=== PATIENT | male | born 1970 ===

== ENCOUNTER 2023-10-06 07:24 | Inpatient (IN) | payer OTHER ==
[2023-10-06] VITALS (7 sets, daily range): BP systolic 67–93; BP diastolic 26–37; PULSE 48–112; RESP 18–24; TEMP 82; O2SAT 0–93
[~2023-10-06] VITALS: Ht 177.8 cm; Wt 68.2 kg
[2023-10-06] MEDS ORDERED: SODIUM CHLORIDE 0.9% 1,000 ML IV ONE (08:15)
[2023-10-06] MEDS ORDERED: THIAMINE 100 MG/ML 2 ML VIAL IVP ONE (08:15)
[2023-10-06] MEDS ORDERED: ETOMIDATE 2 MG/ML 10 ML VIAL IVP ONE (08:15)
[2023-10-06] MEDS ORDERED: SODIUM BICARBONATE 150 MEQ in DEXTROSE 5%-WATER 1,000 ML IV ONE (08:15)
[2023-10-06] MEDS ORDERED: SODIUM BICARBONATE [ADULT] 8.4% 50 MEQ/50 ML SYRINGE IVP ONE ×4 (08:15→13:57)
[2023-10-06] MEDS ORDERED: DOPamine 400MG/D5W[STANDARD] 250 ML IV PRN (08:15)
[2023-10-06] MEDS ORDERED: SUCCINYLCHOLINE CHLORIDE 20 MG/ML 10 ML VIAL IVP ONE (08:15)
[2023-10-06 08:19] LABS: TROPONIN I-HIGH SENSITIVITY 35 ng/L (<76)
[2023-10-06 08:20] LABS: ABG BASE EXCESS -29.4 mmol/L (-2.0-3.0); ABG CARBOXYHEMOGLOBIN 0.8 % (0.0-1.5); ABG METHEMOGLOBIN 1.7 % (0.0-1.5); ABG OXYGEN CONTENT 9.5 mL/dL (15.0-23.0); ABG OXYGEN SATURATION 98.5 % (95.0-98.0); ABG PCO2 36 mmHg (35-45); PO2, ARTERIAL BG 132.5 mmHg (84.0-92.0); SOURCE, BLOOD GAS ARTERIAL
[2023-10-06 08:21] LABS: ABG HCO3 4.2 mmol/L (22.0-26.0); ABG TOTAL HEMOGLOBIN 6.7 G/dL (12.0-18.0); ALLEN TEST, BLOOD GAS Positive; O2 DEVICE,BLOOD GAS VENTILATOR (ROOM AIR); PEEP,BG 5 cm H2O; SITE, BLOOD GAS RT RADIAL; VT, ABG 400 ml
[2023-10-06 08:25] LABS: INR 2.6 (0.9-1.1); PROTHROMBIN TIME 25.3 SEC (9.4-11.6)
[2023-10-06] MEDS ORDERED: AMIODARONE HCL 360 MG in DEXTROSE 5%-WATER 242.8 ML IV ONE (08:30)
[2023-10-06 08:36] LABS: ALBUMIN 2.4 g/dL (3.4-5.0); BILIRUBIN,TOTAL 2.5 mg/dL (0.1-1.0); CALCIUM, TOTAL 7.8 mg/dL (8.8-10.5); CREATININE 3.85 mg/dL (0.60-1.30); POTASSIUM 5.1 mmol/L (3.5-5.1); TOTAL PROTEIN, SERUM 5.9 g/dL (6.4-8.2)
[2023-10-06] MEDS ORDERED: MethylPREDNISolone SOD SUCC 1,000 MG in SODIUM CHLORIDE 0.9% 50 ML IV ONE (08:45)
[2023-10-06] MEDS: AMIODARONE HCL 150 MG in DEXTROSE 5%-WATER 97 ML IV ONE ×2 (08:45→09:45)
[2023-10-06] MEDS ORDERED: MethylPREDNISolone SOD SUCC 125 MG/2 ML VIAL IVP ONE (08:45)
[2023-10-06] MEDS ORDERED: NOREPINEPHRINE 8 MG/0.9 % NACL 250 ML IV ONE (08:56)
[2023-10-06 09:00] LABS: BASOPHILS % (AUTO) 0.7 % (0.0-2.0); EOSINOPHILS % (AUTO) 0.1 % (1.0-6.0); LYMPHOCYTES # (AUTO) 0.7 K/uL (1.0-4.8); LYMPHOCYTES % (AUTO) 17.6 % (22.0-44.0); MEAN CORPUSCULAR HEMOGLOBIN 33.8 pg (26.0-34.0); MEAN CORPUSCULAR VOLUME 113 fL (80-100); MONOCYTES # (AUTO) 0.4 K/uL (0.1-1.0); MONOCYTES % (AUTO) 9.2 % (2.0-9.0); NEUTROPHILS # (AUTO) 2.9 K/uL (1.8-7.7); NEUTROPHILS % (AUTO) 72.4 % (40.0-70.0); RED CELL DISTRIBUTION WIDTH 19.4 % (11.5-14.5); WHITE BLOOD COUNT (AUTO) 4.1 K/uL (4.5-11.0)
[2023-10-06] MEDS ORDERED: NOREPINEPHRINE 8 MG/0.9 % NACL 250 ML IV PRN (09:00)
[2023-10-06 09:02] LABS: HEMATOCRIT 20.3 % (41-53)
[2023-10-06 09:08] LABS: HEMOGLOBIN 6.1 g/dL (13.5-17.5)
[2023-10-06] MEDS ORDERED: CALCIUM GLUCONATE 100 MG/ML 10 ML IVP ONE (09:15)
[2023-10-06] MEDS ORDERED: CALCIUM GLUCONATE 0.465 MEQ/ML 10 ML VIAL ONE (09:35)
[2023-10-06] MEDS ORDERED: SODIUM CHLORIDE 0.9% 500 ML IV ONE (09:40)
[2023-10-06 09:52] LABS: ALCOHOL, URINE DRUG SCREEN NEGATIVE (NEGATIVE); AMPHET/METH SCREEN,URINE POSITIVE (NEGATIVE); BARBITURATE SCREEN, URINE NEGATIVE (NEGATIVE); BENZODIAZEPINES SCREEN,URINE NEGATIVE (NEGATIVE); CANNABINOID SCREEN,URINE NEGATIVE (NEGATIVE); COCAINE SCREEN,URINE NEGATIVE (NEGATIVE); METHADONE SCREEN, URINE NEGATIVE (NEGATIVE); OPIATE SCREEN,URINE NEGATIVE (NEGATIVE); PH,URINE DRUG SCREEN 5.5 (5.0-8.0); PHENCYCLIDINE SCREEN,URINE NEGATIVE (NEGATIVE)
[2023-10-06 10:10] LABS: ABG BASE EXCESS -30.9 mmol/L (-2.0-3.0); ABG CARBOXYHEMOGLOBIN 1.1 % (0.0-1.5); ABG METHEMOGLOBIN 1.4 % (0.0-1.5); ABG OXYGEN CONTENT 5.4 mL/dL (15.0-23.0); ABG OXYGEN SATURATION 52.6 % (95.0-98.0); ABG OXYHEMOGLOBIN 51.3 % (94.0-100.0); ABG PCO2 37 mmHg (35-45); ABG PH 6.745 (7.35-7.450); ABG TOTAL HEMOGLOBIN 7.3 G/dL (12.0-18.0); PO2, ARTERIAL BG 23.2 mmHg (84.0-92.0); SITE, BLOOD GAS ARTERIAL LINE; SOURCE, BLOOD GAS ARTERIAL
[2023-10-06 10:11] LABS: ABG A-A DIFF O2 673.4 mmHg (10-20.0); O2 DEVICE,BLOOD GAS VENTILATOR (ROOM AIR); PEEP,BG 5 cm H2O; VT, ABG 400 ml
[2023-10-06] MEDS ORDERED: EPINEPHrine 2 MG in DEXTROSE 5%-WATER 248 ML IV PRN (10:15)
[2023-10-06] MEDS ORDERED: PHENYLEPHRINE 200 MG/D5%-WATER 250 ML IV PRN (10:15)
[2023-10-06] MEDS ORDERED: VASOPRESSIN 40 UNITS in DEXTROSE 5%-WATER 98 ML IV PRN (10:15)
[2023-10-06 10:33] LABS: ABG BASE EXCESS -30.2 mmol/L (-2.0-3.0); ABG CARBOXYHEMOGLOBIN 0.7 % (0.0-1.5); ABG HCO3 3.2 mmol/L (22.0-26.0); ABG METHEMOGLOBIN 1.1 % (0.0-1.5); ABG OXYGEN CONTENT 5.2 mL/dL (15.0-23.0); ABG OXYHEMOGLOBIN 48.1 % (94.0-100.0); ABG PCO2 47 mmHg (35-45); ABG PH 6.712 (7.35-7.450); ABG TOTAL HEMOGLOBIN 7.5 G/dL (12.0-18.0); ALLEN TEST, BLOOD GAS Positive; SITE, BLOOD GAS RT RADIAL; SOURCE, BLOOD GAS ARTERIAL
[2023-10-06 10:34] LABS: ABG A-A DIFF O2 664.3 mmHg (10-20.0); O2 DEVICE,BLOOD GAS VENTILATOR (ROOM AIR); PEEP,BG 5 cm H2O; VT, ABG 400 ml
[2023-10-06 10:39] LABS: PLATELET COUNT (AUTO) 29 K/uL (150-450)
[2023-10-06 10:40] LABS: RBC MORPHOLOGY COMMENT ABNORMAL RBC MORPH
[2023-10-06] MEDS ORDERED: CALCIUM GLUCONATE 1,000 MG in DEXTROSE 5%-WATER 50 ML IV ONE ×2 (11:15→13:15)
[2023-10-06] MEDS ORDERED: AZITHROMYCIN 500 MG/NS 250 ML IV SCH (11:15)
[2023-10-06] MEDS ORDERED: CefTRIAXone 1 GM/DEXTROSE 50 ML IV ONE (11:15)
[2023-10-06 11:23] LABS: ALBUMIN 1.6 g/dL (3.4-5.0); BILIRUBIN,TOTAL 1.8 mg/dL (0.1-1.0); CALCIUM, TOTAL 6.7 mg/dL (8.8-10.5); CREATININE 3.65 mg/dL (0.60-1.30); POTASSIUM 3.8 mmol/L (3.5-5.1); TOTAL PROTEIN, SERUM 4.2 g/dL (6.4-8.2)
[2023-10-06] MEDS ORDERED: PHENYLEPHRINE HCL IN 0.9% NACL 400 MCG/10 ML SYRINGE IVP ONE (11:43)
[2023-10-06] MEDS ORDERED: 0.9% SODIUM CHLORIDE 10 ML SYRINGE IVP PRN (11:45)
[2023-10-06] MEDS ORDERED: POTASSIUM CHLORIDE 20 MEQ in NXSTAGE RFP-402 K0/CA3 5,000 ML IRRIG PRN (12:00)
[2023-10-06] MEDS ORDERED: PIPERACILLIN/TAZO 3.375 GM/D5W 50 ML IV SCH (13:00)
[2023-10-06] MEDS ORDERED: VANCOMYCIN 1GM/WATER(PEG/NADA) 200 ML IV PRN (13:00)
[2023-10-06] MEDS ORDERED: VANCOMYCIN HCL 1.25 GM in DEXTROSE 5%-WATER 250 ML IV ONE (13:00)
[2023-10-06 13:13] LABS: BASOPHILS % (AUTO) 0.6 % (0.0-2.0); EOSINOPHILS % (AUTO) 0.2 % (1.0-6.0); HEMATOCRIT 24.8 % (41-53); HEMOGLOBIN 7.7 g/dL (13.5-17.5); LYMPHOCYTES # (AUTO) 0.5 K/uL (1.0-4.8); LYMPHOCYTES % (AUTO) 27.1 % (22.0-44.0); MEAN CORPUSCULAR HEMOGLOBIN 32.7 pg (26.0-34.0); MEAN CORPUSCULAR HGB CONC 30.9 G/dL (31.0-37.0); MEAN CORPUSCULAR VOLUME 106 fL (80-100); MONOCYTES # (AUTO) 0.1 K/uL (0.1-1.0); MONOCYTES % (AUTO) 4.2 % (2.0-9.0); NEUTROPHILS # (AUTO) 1.2 K/uL (1.8-7.7); NEUTROPHILS % (AUTO) 67.9 % (40.0-70.0); PLATELET COUNT (AUTO) 31 K/uL (150-450); RED BLOOD CELL COUNT(AUTO) 2.34 MIL/uL (4.50-5.90); WHITE BLOOD COUNT (AUTO) 1.8 K/uL (4.5-11.0)
[2023-10-06] MEDS ORDERED: MAGNESIUM HYDROXIDE SUSPENSION 30 ML UDCUP PO PRN (13:30)
[2023-10-06] MEDS ORDERED: MORPHINE SULFATE 2 MG/ML SYRINGE IVP PRN (13:30)
[2023-10-06] MEDS ORDERED: HYDROCODONE/ACETAMINOPHEN 5-325 MG TABLET PO PRN (13:30)
[2023-10-06] MEDS ORDERED: ZOLPIDEM TARTRATE 5 MG TABLET PO PRN (13:30)
[2023-10-06] MEDS ORDERED: ACETAMINOPHEN 325 MG TABLET PO PRN (13:30)
[2023-10-06] MEDS ORDERED: BISACODYL 10 MG RECTAL RECTAL SUPPOSITORY PR PRN (13:30)
[2023-10-06] MEDS ORDERED: ONDANSETRON HCL 4 MG/2 ML VIAL IVP PRN (13:30)
[2023-10-06] MEDS ORDERED: EPINEPHrine 1:10,000 [1 MG/10 ML] SYRINGE IVP ONE ×2 (13:57)
[2023-10-06] MEDS ORDERED: AMIODARONE HCL 540 MG in DEXTROSE 5%-WATER 239.2 ML IV ONE (14:30)
[2023-10-06 15:10] LABS: RBC MORPHOLOGY COMMENT ABNORMAL RBC MORPH
[2023-10-06] MEDS ORDERED: HEPARIN SODIUM,PORCINE 5,000 UNITS/ML VIAL SQ SCH (16:00)
[2023-10-06] MEDS ORDERED: LACTULOSE 200 GM/300 ML RECTAL SOLUTION PR SCH (21:00)
[2023-10-06] MEDS ORDERED: DOCUSATE SODIUM 100 MG CAPSULE PO SCH (21:00)
[2023-10-07 08:07] LABS: ANTI-DNA DOUBLE STRANDED ABS 1 IU/mL (0-9)
[2023-10-07] MEDS ORDERED: AMIODARONE HCL 750 MG in DEXTROSE 5%-WATER 485 ML IV SCH (08:30)
[2023-10-07] MEDS ORDERED: PANTOPRAZOLE SODIUM 40 MG DR TABLET PO SCH (09:00)
[2023-10-08 13:06] LABS: ATYPICAL P-ANCA AB <1:20 titer (Neg:<1:20); CYTOPLASMIC (C-ANCA) AB, IGG <1:20 titer (Neg:<1:20)
== END 2023-10-06 13:58 | DRG 133 ==
LOC: EDBD 07:26 → EMS 07:26 → ICU 10:08
PROVIDERS: ADMIT Internal Medicine; ATTEND Internal Medicine
PROC: 5A1935Z Respiratory Ventilation, Less than 24 Consecutive Hours (ICD-10-PCS; principal; 2023-10-06)
PROC: 5A12012 Performance of Cardiac Output, Single, Manual (ICD-10-PCS; 2023-10-06)
PROC: 06HY33Z Insertion of Infusion Device into Lower Vein, Percutaneous Approach (ICD-10-PCS; 2023-10-06)
PROC: 0BH17EZ Insertion of Endotracheal Airway into Trachea, Via Natural or Artificial Opening (ICD-10-PCS; 2023-10-06)
PROC: 5A2204Z Restoration of Cardiac Rhythm, Single (ICD-10-PCS; 2023-10-06)
PROC: 04HY32Z Insertion of Monitoring Device into Lower Artery, Percutaneous Approach (ICD-10-PCS; 2023-10-06)
PROC: 30233N1 Transfusion of Nonautologous Red Blood Cells into Peripheral Vein, Percutaneous Approach (ICD-10-PCS; 2023-10-06)
DX: J96.00 Acute respiratory failure, unspecified whether with hypoxia or hypercapnia (principal); I46.9 Cardiac arrest, cause unspecified; K76.7 Hepatorenal syndrome; R57.9 Shock, unspecified; R04.89 Hemorrhage from other sites in respiratory passages; E87.20 Acidosis, unspecified; D68.9 Coagulation defect, unspecified; T68.XXXA Hypothermia, initial encounter; G93.1 Anoxic brain damage, not elsewhere classified; N17.9 Acute kidney failure, unspecified; D69.6 Thrombocytopenia, unspecified; R04.2 Hemoptysis; D64.9 Anemia, unspecified; D72.819 Decreased white blood cell count, unspecified; R74.8 Abnormal levels of other serum enzymes; F15.10 Other stimulant abuse, uncomplicated
CPT/HCPCS: 36600; 43753; 70450; 71045; 71250; 72192; 74150; 80053; 80307; 82140; 82550; 82805; 83880; 84484; 85025; 85610; 85730; 86038; 86225; 86255; 86256; 86850; 86900; 86901; 86920; 86923; 87040; 92950; 93005; 94002; 99291; J0171; J0282; J0330; J0456; J0610; J0696; J1265; J2370; J2543; J2930; J3370; J3411; J3480; J3490; J7040; J7050; J7060; P9016; Q9967; 36415-L1; 36415-TC